=== PATIENT | female | born 1990 | race Caucasian/White ===

== ENCOUNTER → 2018-12-07 | Outpatient (CLI) | payer OTHER ==
[~2018-12-07] MED LIST: ATIVAN 0.50.5 MG/TAB PO; BCP TD; CEFTIN250 M1 PO; CELEXA 20MG20 MG/TAB PO; LORTAB 7.5/5001 TAB PO; MACROBID 1100 MG/CAP PO; NORCO 325 MG-51 TAB PO; PHENERGAN 25 TA25 MG PO; PRENATAL PO; PRILOSEC 20MG20 MG PO; PYRIDIUM200 M1 PO; VICODIN 5/5001 UDTAB PO; WELLBUTRIN XL300 M1 PO; ZOFRAN 4MG T4 MG/TAB PO; ZOLOFT 50MG50 MG PO; ZOVIRAX400 M1 PO
== END ==
LOC: COL.RAD 11:12
DX: Z30.431 Encounter for routine checking of intrauterine contraceptive device (principal)

== ENCOUNTER → 2022-07-25 | Outpatient (CLI) | payer BC | LOC: COL.RAD 13:54 | DX: O34.80 Maternal care for other abnormalities of pelvic organs, unspecified trimester (principal); Z3A.00 Weeks of gestation of pregnancy not specified ==

== ENCOUNTER → 2022-10-11 | Outpatient (CLI) | payer BC | LOC: COL.RAD 09:04 | DX: Z34.91 Encounter for supervision of normal pregnancy, unspecified, first trimester (principal); Z3A.01 Less than 8 weeks gestation of pregnancy ==

== ENCOUNTER → 2022-10-25 | Outpatient (CLI) | payer BC | LOC: COL.RAD 13:08 | DX: Z36.89 Encounter for other specified antenatal screening (principal); Z3A.09 9 weeks gestation of pregnancy ==